=== PATIENT | male | born 1950 | race Two or more races ===

== ENCOUNTER 2019-03-02 10:28 | Emergency (ER) | payer MEDICARE, MEDICAID ==
[~2019-03-02] VITALS: Ht 170.2 cm; Wt 74.8 kg
[~2019-03-02 10:28] MED LIST: FLUT1DIS5; MONT10TA22 PO; VALS80TA2 PO
--- NOTE | 2019-03-02 11:00 | NUR ---
COUGH, CONGESTION, AND SOB X 2 DAYS. PATIENT A/OX4, SPO2 92-93% ON ROOM AIR. CHANGED INTO GOWN, ATTACHED TO THE DIRECTOR PRIVATE. KEPT COMFORTABLE.
[2019-03-02] MEDS ORDERED: methylPREDNISolone SOD SUCC 125 MG/2ML VIAL ONE (11:10)
[2019-03-02] MEDS: methylPREDNISolone SOD SUCC 125 MG/2ML VIAL IV ONE (11:19)
[2019-03-02] MEDS ORDERED: IPRATROPIUM NEB FS 0.5 MG/2.5 ML AMPUL.NEB ONE (11:23)
[2019-03-02] MEDS ORDERED: ALBUTEROL FS 2.5 MG/3 ML VIAL.NEB ONE (11:23)
[2019-03-02] MEDS: IPRATROPIUM NEB FS 0.5 MG/2.5 ML AMPUL.NEB NEB ONE (11:27)
[2019-03-02] MEDS: ALBUTEROL FS 2.5 MG/3 ML VIAL.NEB NEB ONE (11:27)
--- NOTE | 2019-03-02 12:37 | NUR ---
PATIENT STATED HE'S FEELING BETTER.
--- NOTE | 2019-03-02 12:51 | NUR ---
Ambulatory with a steady gait. IV removed. Catheter intact and site benign. Pressure and 4x4 applied to site. No bleeding noted. Patient discharged to home in stable condition. Written and verbal after care instructions given. Patient verbalizes understanding of instruction.
[2019-03-02 12:52] VITALS: BP 151/89
== END 2019-03-02 12:53 | disposition home or self-care (01) ==
LOC: ER 10:28
DX: J45.901 Unspecified asthma with (acute) exacerbation (principal); I10 Essential (primary) hypertension; Z90.49 Acquired absence of other specified parts of digestive tract; Z88.0 Allergy status to penicillin; Z79.899 Other long term (current) drug therapy
CPT/HCPCS: 71045; 94640; 96374; 99283; J2930